=== PATIENT | female | born 1985 | race Caucasian/White ===

== ENCOUNTER 2023-10-29 02:29 | Emergency (ER) | payer BC, SELFPAY ==
[2023-10-29 02:32] VITALS: BP 122/84; PULSE 82; RESP 16; TEMP 36.2; O2SAT 98; BMI 23.5
[2023-10-29 03:09] LABS: Strep A DNA Probe* DETECTED (Not Detectd)
--- NOTE | 2023-10-29 03:29 | ED_ITS ---
HPI - General Adult General Chief complaint: Sore Throat Stated complaint: Needs to have her throat looked at. Time Seen by Provider: 10/29/23 02:50 Source: patient Mode of arrival: ambulatory Limitations: no limitations History of Present Illness HPI narrative: 38 year female presents the emergency department for evaluation of sore throat for the past 5 days, worsening in nature. Difficult to swallow but she is still drinking enough fluids and urinating at least 4 times daily. Does not believe she has a fever. No cough. Does have some mild fatigue. No trauma or injury. No known sick contacts, no pertinent travel. Has been using Tylenol and ibuprofen with some temporary improvement in symptoms. Past medical history benign per her report, no long-term health problems or medications. Denies allergies. ROS notable for the HEENT and generalized symptoms as above, otherwise denies times 12 systems. Related Data Home Medications Medication Instructions Recorded Confirmed No Known Home Medications 10/29/23 10/29/23 Allergies Allergy/AdvReac Type Severity Reaction Status Date / Time No Known Drug Allergies Allergy Verified 10/29/23 02:37 Exam Const: Vital Signs, click to edit/add: Vital Signs - 24 hr 10/29/23 02:32 Temperature 97.1 F L Pulse Rate [Left P ulse Oximeter] 82 Respiratory Rate 16 Blood Pressure [Ri ght Upper Arm] 122/84 Pulse Oximetry 98 Oxygen Delivery Me thod Room Air Documenting provider has reviewed patient's vital signs: yes Common normals: no apparent distress General appearance: cooperative, comfortable and well kempt HENMT: Common normals: normocephalic Head and scalp: normocephalic Face and sinus: normal facial exam Other: Erythema of the tonsillar pillars with no significant swelling. Tonsils not visible, no exudate. Mild petechiae on the palate. No asymmetry. Eye: Common normals: conjunctivae normal General eye: normal appearance of both eyes Conjunctiva: conjunctiva(e) normal Neck & C-Spine: Common normals: full ROM Other: Moderate anterior cervical and submandibular lymphadenopathy Resp: Common normals: normal respiratory effort Effort & inspection: able to speak in complete sentences Cardio: Common normals: regular rate, regular rhythm, S1 normal heart sound and S2 normal heart sound Rate: regular rate Rhythm: regular rhythm Hea rt sounds: S1 normal and S2 normal Psych: Common normals: speech normal Appearance: well kempt Activity/motor behavior: appropriate eye contact Speech: normal speech Insight: insight good Judgement: judgment good Skin: Common normals: no rashes or lesions noted General skin exam: no rashes or lesions noted Course Course ED Course: Differential diagnosis including viral pharyngitis, strep pharyngitis, peritonsillar abscess, allergic reaction, among others. No clinical signs of dehydration on exam, no tachycardia or hypotension. Is tolerating liquids though not overly well. Strep test is positive. Recommended treat with amoxicillin to capsules 2 times daily for the next 10 days. Shot of Toradol here offered, she accepts. Push fluids for the next 48 hours. Should be non contagious in 24 hours, feeling better in 48 hours. If not improving in 3 days, primary care follow-up. Alarm symptoms reviewed that would warrant ED presentation. She verbalizes understanding and agreement. Vital Signs Vital signs: Initial Vital Signs Temperature 97.1 F L 10/29/23 02:32 Temperature Source Temporal Artery Scan 10/29/23 02:32 Pulse Rate 82 10/29/23 02:32 Pulse Rhythm Regular 10/29/23 02:32 Respiratory Rate 16 10/29/23 02:32 Blood Pressure 122/84 10/29/23 02:32 Blood Pressure Mean 96 10/29/23 02:32 Blood Pressure Position Sitting 10/29/23 02:32 Pulse Oximetry 98 10/29/23 02:32 Oxygen Delivery Method Room Air 10/29/23 02:32 Vital Signs Temperature 97.1 F L 10/29/23 02:32 Pulse Rate 82 10/29/23 02:32 Respiratory Rate 16 10/29/23 02:32 Blood Pressure 122/84 10/29/23 02:32 Pulse Oximetry 98 10/29/23 02:32 Oxygen Delivery Method Room Air 10/29/23 02:32 Temperature 97.1 F L 10/29/23 02:32 Pulse Rate 82 10/29/23 02:32 Respiratory Rate 16 10/29/23 02:32 Blood Pressure 122/84 10/29/23 02:32 Pulse Oximetry 98 10/29/23 02:32 Oxygen Delivery Method Room Air 10/29/23 02:32 Medical Decision Making Lab Data Lab results reviewed: Yes I reviewed the patient's lab results Labs: Lab Results 10/29/23 Range/Units 02:40 Group A Strep DNA DETECTED A (Not Detectd) Discharge Plan Discharge Clinical Impression: Acute streptococcal pharyngitis Patient Disposition: Home, Self-Care Condition: Stable Instructions: Strep Throat (DC) Additional Instructions: As discussed, your test is positive for strep. This does match with your clinical findings and your history. I do not see any signs of significant dehydration on exam or based on your vital signs, this is good news. I would like to start you on an antibiotic. You will take amoxicillin 2 tablets 2 times daily for the next 10 days. He will have a few extra in the supply, as it only comes in quantities of 30 from the vending machine. Your given a shot of Toradol, hopefully this will help more with the inflammation and pain. You may take ibuprofen 600 mg again at 10:00 a.m.. You may take Tylenol 1000 mg every 6 hours as soon as needed. Do your best to drink lots of fluids. It is okay if you do not hold down solid food for couple of days. He will be non contagious in 24 hours but it will probably be closer to 48 hours before you feel a lot better. Rest for the next couple of days. Follow-up with her primary care provider if you are not improving in 3 days. Activity Level: Activity as Tolerated Discharge Diet: Regular Prescriptions: No Action No Known Home Medications Follow Up/Referrals: Jennifer Gonzalez MD [Primary Care Provider] - Stand Alone Forms: [facility] Info Instructions
[2023-10-29] MEDS: KETOROLAC 30 MG/ML inj IM (03:35)
== END 2023-10-29 03:44 | disposition home or self-care (01) ==
PROVIDERS: Emergency Provider Family Medicine
DX: J02.0 Streptococcal pharyngitis (principal)
CPT/HCPCS: 87651; 96372; 99283; J1885